=== PATIENT | female | born 1975 | race Caucasian/White ===

== ENCOUNTER 2016-06-01 08:28 | Emergency (ER) | payer BC ==
[~2016-06-01] VITALS: Ht 149.9 cm; Wt 80.0 kg
[~2016-06-01 08:28] MED LIST: EXPECTA PRENAT1 EACH PO; IBUPROFEN800 MG PO; LABETALOL HCL100 MG PO; LABETALOL HCL200 MG PO; PERCOCET 5/31 TABLET PO; SYNTHROID200 MCG PO
[2016-06-01 08:36] VITALS: BP 176/94
[2016-06-01] MEDS ORDERED: LABETALOL HCL100 MG PO ×2 (08:42→08:54)
[2016-06-01] MEDS ORDERED: PROVENTIL HFA6.7 GM IH (08:43)
[2016-06-01] MEDS ORDERED: SYNTHROID300 MCG PO (08:43)
[2016-06-01] MEDS ORDERED: DAILY VITE1 EAC1 PO (08:43)
[2016-06-01] MEDS ORDERED: VIGAMOX 0.60 DROP/3 RIGHT EYE (08:54)
[2016-06-01] MEDS ORDERED: ZITHROMAX Z-PA250 MG PO (08:54)
== END 2016-06-01 09:04 | disposition home or self-care (01) ==
LOC: EXP 08:28 → EME 08:28 → EXP 09:04
DX: J06.9 Acute upper respiratory infection, unspecified (principal); H10.9 Unspecified conjunctivitis; H66.92 Otitis media, unspecified, left ear; I10 Essential (primary) hypertension; Z88.1 Allergy status to other antibiotic agents
CPT/HCPCS: 99281; 99283